=== PATIENT | female | born 2000 | race Native Hawaiian/Other Pacific Islander ===

== ENCOUNTER 2023-09-19 15:15 | Emergency (ER) | payer OTHER ==
--- NOTE | 2023-09-19 15:40 | ED ---
General Adult HPI - General Source: patient, RN notes reviewed Mode of arrival: ambulatory Limitations: no limitations <Mikael Vega - Last Filed: 09/19/23 15:39> <Marlen Breen - Last Filed: 09/20/23 00:51> - General Stated complaint: 7 weeks pg cramping Time Seen by Provider: 09/19/23 15:39 - History of Present Illness Initial comments: 22-year-old female sent emergency Department chief complaint lower abdominal pain. Patient states that she is A0 approximately 7 weeks . She has not seen DEVELOPMENT TECHNICAL LEAD. She is having lower abdominal pain is concern of this . Patient has a history of ectopic denies any vaginal bleeding. (Mikael Vega) 22-year-old female presents to the emergency department for evaluation of lower abdominal cramping. She states that she believes she is about 7 weeks . This is her first . She states that she has been experiencing some cramping on and off for around one week. She denies any vaginal bleeding. She has not seen an OB up to this point. She states that she has not taken any medications including Tylenol for this discomfort. Patient does admit to nausea (Marlen Breen) - Related Data Allergies Allergy/AdvReac Type Severity Reaction Status Date / Time No Known Allergies Allergy Verified 09/19/23 15:50 Review of Systems ROS Other: All systems not noted in ROS Statement are negative. <Mikael Vega - Last Filed: 09/19/23 15:39> ROS Other: All systems not noted in ROS Statement are negative. <Marlen Breen - Last Filed: 09/20/23 00:51> ROS Statement: Those systems with pertinent positive or pertinent negative responses have been documented in the HPI. General Exam <Mikael Vega - Last Filed: 09/19/23 15:39> Limitations: no limitations General appearance: alert, in no apparent distress Head exam: Present: atraumatic, normocephalic, normal inspection Eye exam: Present: normal appearance, PERRL, EOMI. Absent: scleral icterus, conjunctival injection, periorbital swelling ENT exam: Present: normal exam, mucous membranes moist Neck exam: Present: normal inspection. Absent: tenderness, meningismus, lymphadenopathy Respiratory exam: Present: normal lung sounds bilaterally. Absent: respiratory distress, wheezes, rales, rhonchi, stridor Cardiovascular Exam: Present: regular rate, normal rhythm, normal heart sounds. Absent: systolic murmur, diastolic murmur, rubs, gallop, clicks GI/Abdominal exam: Present: soft, normal bowel sounds. Absent: distended, tenderness, guarding, rebound, rigid Extremities exam: Present: normal inspection, full ROM, normal capillary refill. Absent: tenderness, pedal edema, joint swelling, calf tenderness Back exam: Present: normal inspection Neurological exam: Present: alert, oriented X3 Psychiatric exam: Present: normal affect, normal mood Skin exam: Present: warm, dry, intact, normal color. Absent: rash <Marlen Breen - Last Filed: 09/20/23 00:51> - General Exam Comments Initial Comments: Visual Physical Exam Vital signs reviewed General: Well-appearing, nontoxic, no acute distress. Head: Normocephalic, atraumatic Eyes: PERRLA, EOMI ENT: Airway patent Chest: Nonlabored breathing Skin: No visual rash, normal skin tone Neuro: Alert and oriented 3 Musculoskeletal: No gross abnormalities (Mikael Vega) Course Vital Signs 09/19/23 09/19/23 09/19/23 15:46 18:55 21:02 Temperature 98.4 F 98.3 F Pulse Rate 79 78 82 Respiratory 18 18 16 Rate Blood Pressure 111/62 115/63 119/68 O2 Sat by Pulse 100 100 100 Oximetry Medical Decision Making <Mikael Vega - Last Filed: 09/19/23 15:39> <Marlen Breen - Last Filed: 09/20/23 00:51> - Medical Decision Making I completed the quick note portion of this chart signed Mikale Vega PA-C (Mikael Vega) Was pt. sent in by a medical professional or institution (RAFAELA Walter, STRAIGHT SLICING MACHINE OPERATOR, urgent care, hospital, or fdc...) When possible be specific @ -No Did you speak to anyone other than the patient for history (EMS, parent, family, police, friend...)? What history was obtained from this source @ -No Did you review nursing and triage notes (agree or disagree)? Why? @ -I reviewed and agree with nursing and triage notes Were old charts reviewed (outside hosp., previous admission, EMS record, old EKG, old radiological studies, urgent care reports/EKG's, fdc records)? Report findings @ -No old charts were reviewed Differential Diagnosis (chest pain, altered mental status, abdominal pain women, abdominal pain men, vaginal bleeding, weakness, fever, dyspnea, syncope, headache, dizziness, GI bleed, back pain, seizure, CVA, palpatations, mental health, musculoskeletal)? @ -Ectopic , normal early , threatened miscarriage, this list is not all-inclusive EKG interpreted by me (3pts min.). @ -none X-rays interpreted by me (1pt min.). @ -None done CT interpreted by me (1pt min.). @ -None done U/S interpreted by me (1pt. min.). @ - ultrasound shows single live intrauterine with small subchorionic hemorrhage What testing was considered but not performed or refused? (CT, X-rays, U/S, labs)? Why? @ -None What meds were considered but not given or refused? Why? @ -Tylenol considered but patient did not want this medication at this time Did you discuss the management of the patient with other professionals (alma jean baptiste i.ePhong Walter, PA, STRAIGHT SLICING MACHINE OPERATOR, lab, RT, psych nurse, social worker palliative care, shaker repairer, teacher, disability hearing officer, bottle caser)? Give summary @ -No Was smoking cessation discussed for >3mins.? @ -No Was critical care preformed (if so, how long)? @ -No Were there social determinants of health that impacted care today? How? (Homelessness, low income, unemployed, alcoholism, drug addiction, transportation, low edu. Level, literacy, decrease access to med. care, [place] [facility], rehab)? @ -No Was there de-escalation of care discussed even if they declined (Discuss DNR or withdrawal of care, Hospice)? DNR status @ -No What co-morbidities impacted this encounter? (DM, HTN, Smoking, COPD, CAD, Cancer, CVA, ARF, Chemo, Hep., AIDS, mental health diagnosis, sleep apnea, morbid obesity)? @ -None Was patient admitted / discharged? Hospital course, mention meds given and route, prescriptions, significant lab abnormalities, going to OR and other pertinent info. @ -Discharged. Patient presented to the emergency department for evaluation of lower abdominal cramping. She is 7 weeks . ultrasound was obtained which shows a single live intrauterine measuring 7 weeks 1 day. Patient has a small subchorionic hemorrhage. She is not having any vaginal bleeding at this time. Blood type O+. She is not requiring rhogam. Discussed results of ultrasound in detail with patient and she will be discharged home. Patient did not want any Tylenol for the cramping. Discussed that this is a safe medication in but she did not want this at this time. Patient given follow-up with DEVELOPMENT TECHNICAL LEAD. Advised to follow-up. Return quadrants discussed. Patient stable at discharge. Case discussed with Dr. Casey Undiagnosed new problem with uncertain prognosis? @ -No Drug Therapy requiring intensive monitoring for toxicity (Heparin, Nitro, Insulin, Cardizem)? @ -No Were any procedures done? @ -No Diagnosis/symptom? @ -Abdominal cramping and Acute, or Chronic, or Acute on Chronic? @ -Acute Uncomplicated (without systemic symptoms) or Complicated (systemic symptoms)? @ -Uncomplicated Side effects of treatment? @ -No Exacerbation, Progression, or Severe Exacerbation? @ -No Poses a threat to life or bodily function? How? (Chest pain, [place], [place], pneumonia, PE, COPD, DKA, ARF, appy, cholecystitis, CVA, Diverticulitis, Homicidal, Suicidal, threat to staff... and all critical care pts) @ -No (Marlen Breen) - Lab Data Lab Results 09/19/23 09/19/23 09/19/23 Range/Units 15:46 19:42 19:55 HCG, Quant 67937.4 mIU/mL Urine Color Light Yellow Urine Appearance Cloudy H (Clear) Urine pH 7.5 (5.0-8.0) Ur Specific [place] 1.025 (1.001-1.035) Urine Protein Negative (Negative) Urine Glucose (UA) Negative (Negative) Urine Ketones Negative (Negative) Urine Blood Negative (Negative) Urine Nitrite Negative (Negative) Urine Bilirubin Negative (Negative) Urine Urobilinogen <2.0 (<2.0) mg/dL Ur Leukocyte Esterase Negative (Negative) Urine RBC 1 (0-5) /hpf Urine WBC 1 (0-5) /hpf Ur Squamous Epith Cells 6 H (0-4) /hpf Urine Bacteria Occasional H (None) /hpf Urine Mucus Few H (None) /hpf Blood Type O Positive Blood Type Recheck No Previous Record Bld Type Recheck Status CABO Indicated Disposition <Mikael Vega - Last Filed: 09/19/23 15:39> Is patient prescribed a controlled substance at d/c from ED?: No <Marlen Breen - Last Filed: 09/20/23 00:51> Clinical Impression: Abdominal cramping affecting , Subchorionic bleed Disposition: HOME SELF-CARE Condition: Stable Instructions (If sedation given, give patient instructions): Nausea and Vomiting in (ED), (ED), Subchorionic Hemorrhage (ED) Additional Instructions: Please follow up with DEVELOPMENT TECHNICAL LEAD. Return to the emergency department for new or worsening symptoms including vaginal bleeding. Referrals: None,Stated [Primary Care Provider] - 1-2 days Mima Rossi DO [Doctor of Osteopathic Medicine] - 1-2 days Joslyn Grant MD [STAFF PHYSICIAN] - 1-2 days Charmaine Rabago DO [Doctor of Osteopathic Medicine] - 1-2 days Mariaelena Peng MD [STAFF PHYSICIAN] - 1-2 days Andreia Chen DO [Doctor of Osteopathic Medicine] - 1-2 days
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
[2023-09-19 16:37] LABS: Appearance,Urine Cloudy (Clear); Bacteria,Urine Occasional /hpf; Bilirubin,Urine Negative (Negative); Blood,Urine Negative (Negative); Color,Urine Light Yellow; Glucose,Urine (UA) Negative (Negative); Ketones,Urine Negative (Negative); Leukocyte Esterase,Urine Negative (Negative); Mucus,Urine Few /hpf; Nitrite,Urine Negative (Negative); PH, Urine 7.5 (5.0-8.0); Protein,Urine Negative (Negative); RBC,Urine 1 /hpf (0-5); Specific Gravity,Urine 1.025 (1.001-1.035); Squamous Epithelial Cell,Urine 6 /hpf (0-4); Urobilinogen,Urine <2.0 mg/dL (<2.0); WBC,Urine 1 /hpf (0-5)
[2023-09-19 18:59] VITALS: TEMP 98.3
[2023-09-19 21:24] VITALS: BP 119/68; PULSE 82; RESP 16
== END 2023-09-19 21:03 | disposition home or self-care (01) ==
LOC: EC 15:15
DX: O20.8 Other hemorrhage in early pregnancy (principal); O99.331 Smoking (tobacco) complicating pregnancy, first trimester; F17.200 Nicotine dependence, unspecified, uncomplicated; Z3A.01 Less than 8 weeks gestation of pregnancy
CPT/HCPCS: 36415; 76801; 81001; 84702; 86900; 86901; 99284

== ENCOUNTER 2024-02-25 00:19 | Outpatient (CLI) | payer OTHER ==
[2024-02-25 00:59] LABS: Appearance,Urine Cloudy (Clear); Bacteria,Urine Rare /hpf; Bilirubin,Urine Negative (Negative); Blood,Urine Negative (Negative); Color,Urine Yellow; Glucose,Urine (UA) Negative (Negative); Ketones,Urine 4+ (Negative); Leukocyte Esterase,Urine Trace (Negative); Mucus,Urine Moderate /hpf; Nitrite,Urine Negative (Negative); Protein,Urine 1+ (Negative); RBC,Urine 1 /hpf (0-5); Specific Gravity,Urine 1.033 (1.001-1.035); Squamous Epithelial Cell,Urine 2 /hpf (0-4); Urobilinogen,Urine <2.0 mg/dL (<2.0); WBC,Urine 3 /hpf (0-5)
[2024-02-25] MEDS: LACTATED RINGERS 1,000 ML IV ONE (01:34)
[2024-02-25] MEDS: ONDANSETRON 4 MG/2 ML VIAL IVP STA (01:46)
[2024-02-25 02:20] LABS: Basophils % (A) 0 %; Eosinophils % (A) 0 %; HCT 30.8 % (34.0-46.0); HGB 10.2 gm/dL (11.4-16.0); Lymphocytes # (A) 0.5 k/uL (1.0-4.8); Lymphocytes % (A) 6 %; MCH 29.1 pg (25.0-35.0); MCHC 33.1 g/dL (31.0-37.0); MCV 87.9 fL (80.0-100.0); Mean Platelet Volume 8.8; Monocytes # (A) 0.3 k/uL (0-1.0); Monocytes % (A) 3 %; Neutrophils # (A) 7.7 k/uL (1.3-7.7); Neutrophils % (A) 89 %; Platelet Count 269 k/uL (150-450); WBC 8.6 k/uL (3.8-10.6)
[2024-02-25] MEDS: LACTATED RINGERS 1,000 ML IV SCH (02:21)
[2024-02-25 02:29] LABS: African American GFR (CKD) >90 (>60 ml/min/1.73 sqM); Anion Gap 4 mmol/L; Blood Urea Nitrogen 9 mg/dL (7-17); Calcium 7.8 mg/dL (8.4-10.2); Carbon Dioxide 20 mmol/L (22-30); Chloride 110 mmol/L (98-107); Glucose 84 mg/dL (74-99); Non-African American GFR(CKD) >90 (>60 ml/min/1.73 sqM); Potassium 3.6 mmol/L (3.5-5.1); Sodium 134 mmol/L (137-145)
[2024-02-25 05:29] VITALS: BP 116/69; PULSE 96; RESP 16; TEMP 98.2
--- NOTE | 2024-04-10 09:14 | P.MSEPDOC ---
Presenting Problems - Arrival Data Date of Arrival on Unit: 02/25/24 Time of Arrival on Unit: 00:19 Mode of Transport: Ambulatory - Complaint OB-Reason for Admission/Chief Complaint: Acute Nausea/Vomiting Comment: patient presents to triage with vomiting/diarrhea upper abdominal and lower back pain Medical History - Information : 1 Para: 0 Term: 0 : 0 Abortions: Spontaneous or Elective: 0 Number of Living Children: 0 - Gestational Age Gestational Age by MITCH (wks/days): 30 Weeks and 1 Days Review of Systems - Review of Systems Constitutional: No problems Breast: No problems ENT: No problems Cardiovascular: No problems Respiratory: No problems Gastrointestinal: No problems Genitourinary: No problems Musculoskeletal: No problems Neurological: No problems Skin: No problems Vital Signs - Temperature Temperature: 98.2 F Temperature Source: Oral - Pulse Pulse Oximetery Pulse Rate: 96 Pulse Assessment Method: Pulse Oximetry - Respirations Respiratory Rate: 16 Oxygen Delivery Method: Room Air O2 Sat by Pulse Oximetry: 98 - Blood Pressure Right Arm Blood Pressure: 116/69 Blood Pressure Mean: 84 Blood Pressure Source: Automatic Cuff Physician Notification - Physician Notified Physician Notified Date: 02/25/24 Physician Notified Time: 04:44 Physician: Andreia Chen New Order Received: Yes (discharge home) Maternal Triage Index - Maternal Triage Index Presenting for scheduled procedure w/no complaint: No - Stat/Priority 1 Stat Priority 1: No - Urgent/Priority 2 Urgent Priority 2: No - Prompt/Priority 3 Prompt Priority 3: No - Non-Urgent/Priority 4 Non-Urgent Priority 4: Yes Criteria Met for Priority 4: patient presents to triage with vomiting/diarrhea upper abdominal and lower back pain Disposition - Disposition OB Disposition: Discharge to home Discharge Date: 02/25/24 Discharge Time: 05:29 I agree with the RN Medical Screening Exam: Yes Case reviewed; plan agreed upon as documented in EMR&OBIX.: Yes Diagnosis: NONINFECTIVE GASTROENTERITIS AND COLITIS, UNSPECIFIED
== END 2024-02-25 05:30 ==
LOC: FBPOP 00:19
PROVIDERS: ATTEND Obstetrics & Gynecology Obstetrics
DX: O21.9 Vomiting of pregnancy, unspecified (principal); O99.613 Diseases of the digestive system complicating pregnancy, third trimester; K52.9 Noninfective gastroenteritis and colitis, unspecified; Z3A.30 30 weeks gestation of pregnancy
CPT/HCPCS: 59025; 96360; 96361; 80048; 85025; 81001; G0463; J2405; 99214

== ENCOUNTER 2024-05-04 20:55 | Inpatient (IN) | payer OTHER | END 2024-05-07 11:29 | disposition home or self-care (01) | DRG 560 | LOC: 4FBP 20:55 | PROVIDERS: ADMIT Obstetrics & Gynecology Obstetrics; ATTEND Obstetrics & Gynecology Obstetrics | PROC: 10D07Z6 Extraction of Products of Conception, Vacuum, Via Natural or Artificial Opening (ICD-10-PCS; principal; 2024-05-04) | DX: O99.892 Other specified diseases and conditions complicating childbirth (principal); O75.81 Maternal exhaustion complicating labor and delivery; R00.1 Bradycardia, unspecified; O70.0 First degree perineal laceration during delivery; Z3A.40 40 weeks gestation of pregnancy; Z37.0 Single live birth ==

== ENCOUNTER 2025-03-07 07:10 | Emergency (ER) | payer OTHER ==
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
[2025-03-07 08:47] VITALS: BP 116/91; PULSE 98; RESP 20
[2025-03-07 09:00] VITALS: TEMP 98
== END 2025-03-07 09:00 | disposition home or self-care (01) ==
LOC: EC 07:10
DX: S02.2XXA Fracture of nasal bones, initial encounter for closed fracture (principal); S80.812A Abrasion, left lower leg, initial encounter; S80.811A Abrasion, right lower leg, initial encounter; S50.811A Abrasion of right forearm, initial encounter; F17.290 Nicotine dependence, other tobacco product, uncomplicated; Y04.0XXA Assault by unarmed brawl or fight, initial encounter; Y92.009 Unspecified place in unspecified non-institutional (private) residence as the place of occurrence of the external cause
CPT/HCPCS: 70450; 70486; 72125; 99284